=== PATIENT | female | born 1950 | race Caucasian/White ===

== ENCOUNTER → 2016-09-05 | Outpatient (CLI) | payer OTHER, BC ==
--- NOTE | 2016-09-05 16:48 | DX ---
Bilateral Feet, 3 Views Each Side Reason for examination: Pain. Rheumatoid arthritis. No previous examinations are available for compar oseas. Findings: A fracture or other acute osseous abnormality is not identified. Marked degenerative arthri tic changes are seen involving the first metatarsophalangeal articulations bilaterally. There is join t space loss in association with some bony sclerosis and osseous erosions. There is medial displaceme nt of the proximal phalanges of the first toes bilaterally. The appearance is most suggestive of eros khang osteoarthritis. No other erosions are seen. Osseous mineralization is normal. 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
--- NOTE | 2016-09-05 16:59 | DX ---
Bilateral Hands, Three Views Each Side Reason for Examination: Pain. Polyarthralgia in a 66-year-old female. Findings: A fracture or other acute osseous abnormality is not identified. Evaluation of the bones and joints of both hands shows no erosions. Prominent degenerative arthritic changes are seen involv ing the distal articulations of the carpal naviculae bilaterally. There is joint space loss and scle rosis, and the appearance is consistent with degenerative osteoarthritis, with findings somewhat more severe on the right. Degenerative changes are also seen at the bases of the 1st metacarpals bilater ally. Minimal degenerative joint changes are seen involving interphalangeal joints bilaterally. Oss eous mineralization is normal. Impression: Findings consistent with degenerative osteoarthritis are noted, most severe in the wrist s, as detailed above.
--- NOTE | 2016-09-05 19:18 | DX ---
Left knee 3 views Indication: Bilateral knee pain. Findings: There is moderate medial joint space narrowing. There is mild tibial plateau beaking. There is moderate patellofemoral joint space narrowing and posterior patellar osteophyte formation. No josh nt effusion. No fracture or dislocation. Alignment is normal. Impression: Early tricompartmental osteoarthritis.
--- NOTE | 2016-09-05 20:13 | DX ---
Right Knee, Three Views Indication: Pain. Findings: The patient has had a right ACL repair. There is mild to moderate both medial and lateral joint space narrowing, slightly increased in the lateral compartment compared to the left knee. Mod erate patellofemoral joint space narrowing and osteophyte formation, less compared to the left knee, particularly at the medial compartment. No joint effusion. No fracture or dislocation. Impression: 1. Slight worsening lateral femorotibial compartment joint space narrowing compared to the left knee . 2. Mild patellofemoral joint space narrowing, better compared to the left knee. 3. Post ACL repair.
--- NOTE | 2016-09-06 07:57 | DX ---
DEXA Bone Densitometry Technique: DEXA scan was performed on [employer] Discovery W Bone Densitometer Indication: Osteopenia Comparator Study: None Results: Lumbar Spine BMD: 1.052 T-score: 0.0 1/3 Radius BMD: 0.648 T-score: -0.6 CONCLUSION: Normal bone mineral density ADDITIONAL COMMENTS: Scoliosis is present. Moderate degenerative changes are present lower lumbar spine. This will increase the measured bone de nsity of lumbar spine. DXA scan is suggestive of vertebral compression fracture. Recommend x-ray for further evaluation NOTE: The risk of osteoporotic fractures increases approximately twofold for each 1.0 SD decrease in T-score. The T-score represents the standard deviations from a young normal, same sex, reference po pulation. Low bone density is not the only risk factor for fracture. Clinical factors to consider include fall risk, previous osteoporotic fractures, family history of fractures, smoking, and low body weight. Patients who have an unexpectedly low BMD may need to be evaluated for secondary causes of low bone m ineral density. In comparing the present study to a prior study, lack of a significant increase or decrease in BMD ma y signify efficacy of the patient's present treatment. Bone mineral density measurements performed with densitometers produced by different manufacturers ar e not comparable. For the most reproducible BMD measurement, subsequent exams should be performed on the same densitometer.
== END ==
LOC: BMCIMAGING 12:54
PROVIDERS: ATTEND Internal Medicine
DX: Z13.820 Encounter for screening for osteoporosis (principal); M51.36 Other intervertebral disc degeneration, lumbar region; M25.861 Other specified joint disorders, right knee; M17.12 Unilateral primary osteoarthritis, left knee; M25.841 Other specified joint disorders, right hand; M25.842 Other specified joint disorders, left hand; M25.871 Other specified joint disorders, right ankle and foot; M25.872 Other specified joint disorders, left ankle and foot

== ENCOUNTER 2018-01-21 08:48 | Emergency (ER) | payer OTHER, BC ==
[2018-01-21 08:55] VITALS: BP 120/84
--- NOTE | 2018-01-21 09:17 | EDPHY ---
H & P Time Seen by Provider: 01/21/18 08:59 HPI/ROS: CHIEF COMPLAINT: Left foot pain and swelling HISTORY OF PRESENT ILLNESS: 68-year-old female presents to the emergency department with pain and swelling in her left foot. The patient states that she had some"body work"by her physical therapist including massage to her feet about a week and half ago and the following day she was having a bit more pain in her left foot. She states that she did a pilates class and did some jumping but she was able to finish the whole class without any problems. She states since that time however she has had more pain in her left foot that is radiating up into her left lateral leg. She states when she woke up this morning she noted some redness and more pain and is now having difficulty walking on it. She denies pain at rest. She has pain with certain movements as well as weight-bearing in especially walking. ROS: Denies fevers, chills, rash, pain in her groin. Past Medical/Surgical History: Arthritis Social History: Smoking Status: Never smoked Physical Exam: On examination the patient has some mild swelling noted to the dorsal aspect of her left foot. She has some mild redness overlying the metatarsal heads that extends into the midfoot. It is not warm to the touch. No lymphangitis. Nontender to palpate in her calf. It is tender to the touch even just to light touch. She has pain especially with palpation over the 2nd and 3rd metatarsal head. No palpable crepitus or other bony abnormality. Full range of motion of her left foot and ankle. Full range of motion of the left ankle. Obvious antalgic gait. Constitutional: Initial Vital Signs Temperature (C) 36.5 C 01/21/18 08:53 Heart Rate 76 01/21/18 08:53 Respiratory Rate 16 01/21/18 08:53 Blood Pressure 120/84 H 01/21/18 08:53 O2 Sat (%) 97 01/21/18 08:53 O2 Delivery Mode Room Air Allergies/Adverse Reactions: codeine Allergy (Verified 01/21/18 08:57) Penicillins Allergy (Verified 01/21/18 08:57) Home Medications: Medication Instructions Recorded CeleBREX 01/21/18 Cephalexin [Keflex] 500 mg PO QID #28 cap 01/21/18 Hrt 01/21/18 MDM/Departure - MDM Imaging Results: Imaging Impressions Foot X-Ray 01/21/18 09:17 Impression: 1. Probable incomplete stress fracture of the 2nd metatarsal diaphysis. 2. Increased erosions at the 1st metatarsophalangeal joint suggesting worsening rheumatoid arthritis. Findings discussed with PENELOPE HERNANDEZ 01/21/2018 at 10:10. Imaging: Discussed imaging studies w/ call center director Radiologist, I viewed and interpreted images myself Procedures: Patient was placed in a Edwards boot and examined post application in good placement with normal [employer]CH [employer]PERATOR. ED Course/Re-evaluation: 68-year-old female presents to the emergency department with left foot pain and swelling. X-rays reveal possible stress fracture of the 2nd metatarsal head. This was also discussed with the radiologist. The patient was given options of using postop shoe versus Edwards boot. She was placed in a Edwards boot. She also has some redness with an open wound noted to the distal aspect of her 3rd toe and therefore the possibility of cellulitis was raise. It is erythematous however not warm to the touch. She was given options of using oral Keflex for possible early cellulitis and the patient agreed with antibiotics. She will have close follow-up with her orthopedic surgeon. She will come back to the emergency department if she develops fever, increasing pain, lymphangitic streaking or if she feels worse in any way. - Depart Disposition: Home, Routine, Self-Care Clinical Impression: Cellulitis of left foot Fracture of 2nd metatarsal Qualifiers: Encounter type: initial encounter Fracture type: closed Fracture alignment: nondisplaced Laterality: left Qualified Code(s): S92.325A - Nondisplaced fracture of second metatarsal bone, left foot, initial encounter for closed fracture Condition: Good Instructions: Cellulitis (ED), Foot Fracture in Adults (ED) Additional Instructions: Keep boot on for comfort and support. Keflex 500 mg 4 times daily for 1 week. Elevate your foot as discussed. Follow up with orthopedic surgeon this week to recheck. Prescriptions: Cephalexin [Keflex] 500 mg PO QID #28 cap Referrals: Eliazar Flores MD [Primary Care Provider] - As per Instructions Papo Steven MD [Medical Doctor] - 2-3 days without fail (Orthopedic surgeon on-call)
== END 2018-01-21 10:27 | disposition home or self-care (01) ==
DX: S92.325A Nondisplaced fracture of second metatarsal bone, left foot, initial encounter for closed fracture (principal); L03.116 Cellulitis of left lower limb; X58.XXXA Exposure to other specified factors, initial encounter; Y99.8 Other external cause status; Y93.39 Activity, other involving climbing, rappelling and jumping off

== ENCOUNTER → 2018-03-19 | Outpatient (CLI) | payer OTHER, BC | LOC: BMCIMAGING 10:19 | PROVIDERS: ATTEND Internal Medicine | DX: Z09 Encounter for follow-up examination after completed treatment for conditions other than malignant neoplasm (principal); M48.56XA Collapsed vertebra, not elsewhere classified, lumbar region, initial encounter for fracture; Z87.39 Personal history of other diseases of the musculoskeletal system and connective tissue; Z78.0 Asymptomatic menopausal state ==